=== PATIENT | female | born 1985 | race Two or more races ===

== ENCOUNTER 2019-05-27 02:39 | Emergency (ER) | payer BC ==
[~2019-05-27] VITALS: Ht 154.9 cm; Wt 63.0 kg
--- NOTE | 2019-05-27 02:48 | NUR ---
Patient arrive at the ER with chief complaint of earache/irritation due to possible insect/bug that entered on her here which occurred at 1:40am today. Patient AOX4. In no acute distress.
--- NOTE | 2019-05-27 03:20 | NUR ---
Dr. Epps on bedside for MSE.
[2019-05-27] MEDS ORDERED: LIDOCAINE VISCUS 2% 15 ML UDC ONE (03:53)
--- NOTE | 2019-05-27 04:29 | NUR ---
Dr. Epps at bedside.
--- NOTE | 2019-05-27 04:46 | NUR ---
Patient discharged to home in stable conditon. Written and verbal after care instructions given. Patient verbalizes understanding of instructions. Pt ambulated out of the ER with steady gait. All belongings with pt.
[2019-05-27 04:47] VITALS: BP 130/71
== END 2019-05-27 04:46 | disposition home or self-care (01) ==
LOC: ER 02:47
DX: T16.2XXA Foreign body in left ear, initial encounter (principal); X58.XXXA Exposure to other specified factors, initial encounter; Y93.89 Activity, other specified; Y92.89 Other specified places as the place of occurrence of the external cause; Y99.8 Other external cause status
CPT/HCPCS: A4217; A4663